=== PATIENT | male | born 1940 | race Caucasian/White ===

== ENCOUNTER 2023-06-30 07:56 | Day surgery (SDC) | payer OTHER, MEDICARE ==
[2023-06-28 11:33] LABS: Absolute Basophils 0.1 K/uL (0-0.5); Absolute Eosinophils 0.5 K/uL (0-0.5); Absolute Lymphocytes (CBC) 1.4 K/uL (0.7-4.9); Absolute Monocytes 0.7 K/uL (0.1-1.3); Absolute Neutrophil 2.8 K/uL (1.8-8.0); Basophils % 0.9 % (0-1.3); Eosinophils % 9.6 % (0-4.4); Hematocrit 39.2 % (39.6-49.0); Hemoglobin 13.3 g/dL (13.6-17.9); Lymphocytes % 25.8 % (15.3-44.8); MCH 33.7 pg (27.0-35.0); MCV 99.3 fL (80-100); MPV 7.6 fL (7.6-11.3); Monocytes % 13.4 % (3.3-12.3); Neutrophils % 50.3 % (41.7-73.7); Platelets 211 thou/uL (152-406); RBC Red Blood Cell Count 3.95 M/uL (4.33-5.43); Red Cell Distribution Width 14.7 % (12.1-15.2)
[2023-06-28 11:37] LABS: PT Prothrombin Time 11.4 SECONDS (9.5-12.5); PTT, Activated Partial Thromb 31.4 SECONDS (24.3-36.9); Protime INR 1.04
[2023-06-28 11:43] LABS: Anion Gap 9.1 mEq/L (5.0-15.0); Potassium 4.1 mEq/L (3.5-5.1)
--- NOTE | 2023-06-28 11:46 | RAD REPORT ---
EXAM DESCRIPTION: Aleah Garcia And George (2 Views)06/28/2023 11:31 am CLINICAL HISTORY: Preop for cardiac catheterization COMPARISON: None FINDINGS: Lungs are hyperaerated. The lungs appear clear of acute infiltrate. The heart is normal size. Postsurgical changes involve the chest IMPRESSION: No acute abnormalities displayed
[2023-06-30] MEDS: NA CHLORIDE 0.9% 500 ML ONE (07:57)
[2023-06-30] MEDS ORDERED: FENTANYL CITR 100 MCG/2 ML ONE (08:44)
[2023-06-30] MEDS ORDERED: MIDAZOLAM HCL 2 MG/2 ML INJ ONE (08:44)
[2023-06-30] MEDS ORDERED: LIDOCAINE 1% 20 ML MDV ONE (08:44)
[2023-06-30] MEDS ORDERED: HEPA 1000U/500MLS 2,000 UNIT/1,000 ML BAG IV ONE (08:44)
[2023-06-30] MEDS ORDERED: HEPARIN 10,000 UNIT/10 ML VIAL IV ONE (08:45)
[2023-06-30] MEDS ORDERED: ATROPINE SULF 1 MG/10 ML SYR IV ONE (08:45)
[2023-06-30 08:50] VITALS: TEMP 96.9
[2023-06-30] MEDS ORDERED: TICAGRELOR 90 MG TABLET PO ONE (10:16)
[2023-06-30] MEDS ORDERED: ASPIRIN 325 MG TAB ONE (10:16)
[2023-06-30] MEDS ORDERED: CLOPIDOGREL 75 MG TABLET ONE ×2 (10:16→11:29)
[2023-06-30 14:58] VITALS: BP 126/48; O2SAT 100
--- NOTE | 2023-07-01 17:36 | EKG ---
Test Date: 2023-06-28 Test Time: 11:18:42 Wound/Ostomy Nurse: SEAN MEASUREMENT RESULTS: Intervals: Rate: 44 CA: 202 QRSD: 82 QT: 470 QTc: 401 [place]: P: 79 CA: 202 QRS: 81 T: 76 INTERPRETIVE STATEMENTS: Marked sinus bradycardia Abnormal ECG No previous ECG available for comparison Electronically Signed On 07-01-23 17:25:35 CDT by Eduardo Stock
== END 2023-06-30 14:42 | disposition home or self-care (01) ==
LOC: CCL 07:56
PROVIDERS: ATTEND Internal Medicine
DX: I25.10 Atherosclerotic heart disease of native coronary artery without angina pectoris (principal); I25.82 Chronic total occlusion of coronary artery; I34.0 Nonrheumatic mitral (valve) insufficiency; I70.223 Atherosclerosis of native arteries of extremities with rest pain, bilateral legs; I65.23 Occlusion and stenosis of bilateral carotid arteries; I10 Essential (primary) hypertension; E78.2 Mixed hyperlipidemia; Z95.1 Presence of aortocoronary bypass graft; Z87.891 Personal history of nicotine dependence; Z79.899 Other long term (current) drug therapy
CPT/HCPCS: 93005; 85025; 80048; 36415; 83721; 85610; 85347 ×2; 85730; 71046; 93459; 76937; C1893; Q9966; C1760; Q9967; C1725; C9600; J2001; J2250; J3010; J7040; 92921; 99152; 99153; J0461

== ENCOUNTER 2023-08-09 09:35 | Day surgery (SDC) | payer OTHER, MEDICARE ==
[2023-08-05 14:17] LABS: Absolute Eosinophils 0.4 K/uL (0-0.5); Absolute Lymphocytes (CBC) 1.1 K/uL (0.7-4.9); Absolute Monocytes 0.5 K/uL (0.1-1.3); Absolute Neutrophil 2.2 K/uL (1.8-8.0); Basophils % 0.8 % (0-1.3); Eosinophils % 8.8 % (0-4.4); Hematocrit 32.3 % (39.6-49.0); Hemoglobin 10.8 g/dL (13.6-17.9); Lymphocytes % 25.6 % (15.3-44.8); MCH 33.8 pg (27.0-35.0); MCHC 33.5 g/dL (32.0-36.0); MCV 101.1 fL (80-100); MPV 7.8 fL (7.6-11.3); Monocytes % 12.6 % (3.3-12.3); Neutrophils % 52.2 % (41.7-73.7); Platelets 184 thou/uL (152-406); RBC Red Blood Cell Count 3.19 M/uL (4.33-5.43); Red Cell Distribution Width 14.9 % (12.1-15.2)
[2023-08-05 14:23] LABS: PT Prothrombin Time 11.5 SECONDS (9.5-12.5); PTT, Activated Partial Thromb 28.8 SECONDS (24.3-36.9); Protime INR 1.05
[2023-08-05 14:30] LABS: Anion Gap 4.3 mEq/L (5.0-15.0); Potassium 4.3 mEq/L (3.5-5.1)
[2023-08-09] MEDS ORDERED: HEPA 1000U/500MLS 2,000 UNIT/1,000 ML BAG IV ONE (09:45)
[2023-08-09] MEDS ORDERED: LIDOCAINE 1% 20 ML MDV ONE (09:45)
[2023-08-09] MEDS: NA CHLORIDE 0.9% 500 ML ONE (09:54)
[2023-08-09] MEDS ORDERED: VERAPAMIL HCL 10 MG/4 ML VIAL IV ONE (10:27)
[2023-08-09] MEDS ORDERED: HEPARIN 5000 UNIT/ML 1 ML VIAL ONE (10:27)
[2023-08-09] MEDS ORDERED: FENTANYL CITR 100 MCG/2 ML ONE (10:27)
[2023-08-09] MEDS ORDERED: MIDAZOLAM HCL 2 MG/2 ML INJ ONE (10:27)
[2023-08-09 10:30] VITALS: O2SAT 100
[2023-08-09 15:09] VITALS: BP 150/49
--- NOTE | 2023-08-09 22:40 | OP ---
Date of Procedure: 08/09/2023 Surgeon: Everton Diaz Procedures Performed: Lower abdominal aortograms and peripheral runoff. Indication For Procedure: Claudications, previous history of PAD and stenting. Sedation Time: 30 minutes. Access: Right common femoral artery, closed by Angio-Seal. Complications: None. Estimated Blood Loss: Less than 50 cc. Description Of Procedure: After risks, benefits, and alternatives were explained to the patient, the patient agreed to proceed and signed informed consent. The patient was brought to the bean sprout laborer, pre pped and draped in a sterile fashion. The right common femoral artery access was obtained using an u ltrasound-guided micropuncture technique. Next, a 6-Croat[place] sheath was advanced. There were no compl ications. We used an Omni Flush catheter for lower abdominal aortogram and was exchanged for an MIESHA catheter for the left lower extremity peripheral runoff, which was later pulled off over J-wire and t he right lower extremity runoff was done through the right common femoral artery sheath. At the end of procedure, sheath was removed. Angio-Seal was applied. The patient was moved back to recovery in stable condition. Findings: 1.Lower abdominal aorta. 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 2.Left iliac is patent. 3.Left SFA has an ostial 80% disease right at the profunda bifurcation. Then, proximal diffuse 70% disease. Mid stent with diffuse 70% to 90% disease, and then mild LI. 4.Left popliteal patent. 5.Left anterior tibial/left posterior tibial, mid occluded. 6.Left peroneal patent, distal 80% disease. 7.One runoff on the left side. 8.Right iliac proximal 40% disease. 9.Right SFA long stent patent. 10.Right popliteal diffuse 70% disease. 11.Right anterior tibial/right posterior tibial, occluded. 12.Right peroneal is patent. 13.One runoff. Assessment And Plan: 1.Significant peripheral artery disease, including left superficial femoral artery in-stent restenos is with left superficial femoral artery ostial disease, and 1 runoff distally. 2.Significant right [id number] disease with 1 runoff distally and occluded anterior tibial and p osterior tibial. Plan will be to consult Vascular Surgery to evaluate for a femoral-popliteal bypass on the left. We will continue monitoring the right leg. ARCE/MODL Voice ID: [id number] Report ID: [id number]
--- NOTE | 2023-08-11 17:11 | EKG ---
Test Date: 2023-08-05 Test Time: 13:53:37 Records Management Technician: CG MEASUREMENT RESULTS: Intervals: Rate: 53 IA: 190 QRSD: 80 QT: 412 QTc: 386 [place]: P: 68 IA: 190 QRS: 77 T: 76 INTERPRETIVE STATEMENTS: Sinus bradycardia Otherwise normal ECG Compared to ECG 06/28/2023 11:18:42 No significant changes Electronically Signed On 08-11-23 16:49:39 CDT by Eduardo Stock
== END 2023-08-09 14:50 | disposition home or self-care (01) ==
LOC: CCL 09:35
PROVIDERS: ATTEND Internal Medicine
DX: I70.223 Atherosclerosis of native arteries of extremities with rest pain, bilateral legs (principal); T82.856A Stenosis of peripheral vascular stent, initial encounter; I71.40 Abdominal aortic aneurysm, without rupture, unspecified; I25.10 Atherosclerotic heart disease of native coronary artery without angina pectoris; I65.23 Occlusion and stenosis of bilateral carotid arteries; I10 Essential (primary) hypertension; E78.2 Mixed hyperlipidemia; Z87.891 Personal history of nicotine dependence; Z79.82 Long term (current) use of aspirin; Z79.899 Other long term (current) drug therapy
CPT/HCPCS: 93005; 85025; 80048; 36415; 83721; 85610; 85730; 75625; 36245; 75716; 76937; C1893; C1760; G0269; J2001; J2250; J3010; J7040; 36200; 99152; 99153; J1644

== ENCOUNTER 2024-02-21 06:57 | Day surgery (SDC) | payer OTHER, MEDICARE ==
[2024-02-16 16:04] LABS: Absolute Eosinophils 0.3 K/uL (0-0.5); Absolute Lymphocytes (CBC) 0.8 K/uL (0.7-4.9); Absolute Monocytes 0.6 K/uL (0.1-1.3); Absolute Neutrophil 2.6 K/uL (1.8-8.0); Eosinophils % 7.3 % (0-4.4); Hemoglobin 10.7 g/dL (13.6-17.9); Lymphocytes % 18.9 % (15.3-44.8); MCH 33.3 pg (27.0-35.0); MCHC 34.5 g/dL (32.0-36.0); MCV 96.5 fL (80-100); MPV 7.2 fL (7.6-11.3); Monocytes % 13.1 % (3.3-12.3); Neutrophils % 59.7 % (41.7-73.7); Platelets 209 thou/uL (152-406); RBC Red Blood Cell Count 3.22 M/uL (4.33-5.43); Red Cell Distribution Width 15.5 % (12.1-15.2)
[2024-02-16 16:13] LABS: PT Prothrombin Time 11.7 SECONDS (9.4-12.5); Protime INR 1.05
--- NOTE | 2024-02-16 16:19 | RAD REPORT ---
Procedure: Chest Pa And Lat (2 Views) HISTORY: pre op for urolift procedure COMPARISON: June 2023 FINDINGS: The lungs appear clear of acute infiltrate. No significant pleural effusion noted. The heart is normal size. Lungs are hyperaerated. Post surgical changes involving the chest IMPRESSION: No acute abnormality is displayed.
[2024-02-16 16:20] LABS: Anion Gap 5.4 mEq/L (5.0-15.0); Potassium 4.4 mEq/L (3.5-5.1)
--- NOTE | 2024-02-20 12:23 | EKG ---
Test Date: 2024-02-16 Test Time: 15:31:05 Dump Grader: KARLA MEASUREMENT RESULTS: Intervals: Rate: 60 SC: 194 QRSD: 78 QT: 412 QTc: 412 [place]: P: 78 SC: 194 QRS: 84 T: 53 INTERPRETIVE STATEMENTS: Normal sinus rhythm Normal ECG Compared to ECG 08/05/2023 13:53:37 Sinus bradycardia no longer present Electronically Signed On 02-20-24 12:17:33 VP RESPIRATORY by Everton Diaz
[2024-02-21] MEDS: Ringers Lactate 1,000 ML IV ONE (07:20)
[2024-02-21 07:37] VITALS: O2SAT 100
[2024-02-21] MEDS ORDERED: propofoL 200 MG/20 ML VIAL IV ONE (07:46)
[2024-02-21] MEDS ORDERED: ONDANSETRON 4 MG/2 ML VIAL ONE (07:46)
[2024-02-21] MEDS ORDERED: FENTANYL CITR 100 MCG/2 ML ONE (07:47)
[2024-02-21] MEDS ORDERED: LIDOCAINE 1% MPF 5 ML VIAL ONE (07:47)
[2024-02-21] MEDS: Gentamicin Inj 120 MG in NA CHLORIDE 0.9% 100 ML IV ONE (07:51)
[2024-02-21] MEDS: Levofloxacin500mg IV 500 MG/100 ML BAG IV ONE (08:25)
[2024-02-21] MEDS ORDERED: EPHEDRINE SULF 50 MG/ML VIAL ONE (08:31)
[2024-02-21] MEDS ORDERED: dexAMETHasone 10 MG/ML VIAL ONE (08:35)
[2024-02-21] MEDS ORDERED: CODEINE 30MG/APAP 300MG TAB PO PRN (09:32)
[2024-02-21] MEDS: PHENAZOPYRIDINE 100MG TAB PO ONE (09:33)
[2024-02-21] MEDS ORDERED: PHENAZOPYRIDINE 100MG TAB PO ONE (10:14)
[2024-02-21 13:51] VITALS: BP 116/42; TEMP 97
--- NOTE | 2024-02-21 16:34 | P.OP ---
Date of Service: 02/21/24 Preoperative diagnoses: BPH with urinary retention Postoperative diagnoses: BPH with urinary retention Principal procedures: UroLift/prostatic urethral lift with 8 implants placed Insertion of urethral Hdz catheter Indication for procedure: 83-year-old gentleman with urinary retention requiring catheter placement post failed voiding trial attempts. 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 As a result, he elected to proceed with surgical therapy. Since his prostate was relatively small in volume, about 19 g, and the anatomic features were favorable, he was a good candidate for the UroLift. Procedure note: He was consented in the preoperative holding area before being transferred to the operative suite where general anesthesia was induced. He was given Levaquin IV antimicrobial prophylaxis along with 120 mg gentamicin IV antimicrobial prophylaxis for the organisms observed in his urine from the preoperative catheter culture. The indwelling Hdz catheter was removed, and his genitalia was prepped with Hibiclens before being draped in standard fashion, after he was placed in the lithotomy position. He was padded and secured to the table appropriately. The case was begun using the 20 [place] UroLift sheath and a visual obturator to traverse his urethra navigating beyond the prostatic urethra where some lateral lobar hypertrophy was observed, before entering the bladder with ease. The bladder was decompressed of fluid and urine and then irrigated via the scope to remove a small amount of debris. I then switched the visual obturator for the UroLift delivery device and targeted the patient's left side at the bladder neck first. Because of the lateral lobar intrusion that extended along the length of the urethra from anterior to posterior, particularly at the bladder neck, and because of his retention of urine requiring a catheter, I endeavor to make his channel as widely patent as possible. As a result, I targeted that lateral lobar intrusion on the patient's left side first at around the 3 o'clock position. I angled the scope about 15 degrees laterally against the tissue. I pulled the trigger once deploying the needle through the substance of the prostate. I then angled the scope and additional 15 degrees compressing the tissue completely to ensure the needle situated outside the capsular surface. I then pulled the trigger a second time deploying the capsular tab and partially retracting the needle. A third pull of the trigger did completely retract the needle and tension the suture. I then advanced the scope back toward the midline and 2 to 3 mm toward the bladder neck until the white line of the monofilament was centered in the delivery bay. At this point, I pulled the trigger a fourth time deploying the urethral end piece and t ailoring the suture. I then advanced the UroLift delivery device back into the patient's bladder and switched the spent implant for a new implant. I targeted the second implant in the contralateral position on the patient's right side at around the 9 o'clock position. This did nicely lateralized the intraluminal obstructing tissue, but the more anterior component of the tissue did now seem to fall and a bit. As a result, I stacked 2 additional implants at the bladder neck more anteriorly at the 1 o'clock position on the left and the 11 o'clock position on the right. This did beautifully open the bladder neck widely. I then turned my attention to the apex where I placed 1/5 and a 6 the implant on the patient's left and right Chris prostate at the level of the verumontanum. Survey of the channel created revealed some residual tissue intruding from the lateral lobes between the apical implants and the base implants. As a result, I targeted the patient's right lateral lobar tissue in the mid zone of the prostate first beautifully lateralizing that and making evidence of an anterior channel that was only partially obscured by some mild intraluminal intrusion coming from the patient's left side. Because he was in retention requiring a catheter and his bladder was known to be weak, I wanted to maximize his opportunity for success by eliminating any residual source of obstruction; so I went forward and placed on the eighth and final implant into the patient's mid zone prostate tissue on the left side. This created a beautiful continuous anterior channel evident from the verumontanum all the way into the bladder neck with the bladder completely decompressed and no inflow of fluid. As a result, I placed an 18 [place] urethral Hdz catheter into his bladder with ease and placed 15 cc of sterile water in the balloon. The catheter was connected to a leg bag, and he was taken out of the lithotomy position. He was then awakened from general anesthesia before being transferred to a stretcher and then transferred to the recovery room in good condition. Complications: None Discharge disposition: Given his weak detrusor, I sent him home tonight with a catheter in place, but I instructed him to remove the catheter tomorrow morning at 7 AM sharp. He will then be given until 1 PM to void, after which time if he is unsuccessful, a catheter should be placed prior to 3 PM. Even if he is successful at voiding, I informed them I still want him to come in so that we can do a bladder scan postvoid residual assessment to ensure he is adequately emptying. Follow-up thereafter in 1 month.
== END 2024-02-21 10:56 | disposition home or self-care (01) ==
LOC: OR 06:57
PROVIDERS: ATTEND Urology
PROC: 0T7D8DZ Dilation of Urethra with Intraluminal Device, Via Natural or Artificial Opening Endoscopic (ICD-10-PCS; principal; 2024-02-21 08:15)
DX: N40.1 Benign prostatic hyperplasia with lower urinary tract symptoms (principal); R33.8 Other retention of urine; I10 Essential (primary) hypertension; E78.5 Hyperlipidemia, unspecified; I25.10 Atherosclerotic heart disease of native coronary artery without angina pectoris; Z95.1 Presence of aortocoronary bypass graft; I73.9 Peripheral vascular disease, unspecified
CPT/HCPCS: 93005; 85025; 80048; 36415; 85610; 85730; 71046; 52441; 52442 ×7; J2704; J2003; J1580; J3010; J1100; J2405; J7120